=== PATIENT | male | born 1995 ===

== ENCOUNTER → 2020-11-18 | Outpatient (REF) | payer OTHER | LOC: M WUC 19:23 | PROVIDERS: ATTEND Physician Assistant | DX: R31.9 Hematuria, unspecified (principal) ==

== ENCOUNTER → 2021-11-14 | Outpatient (REF) | payer OTHER ==
[2021-11-15 01:35] LABS: GC DNA AMPLIFICATION NEGATIVE (NEGATIVE)
== END ==
LOC: M LAB REF 22:55
PROVIDERS: ATTEND Physician Assistant
DX: Z11.3 Encounter for screening for infections with a predominantly sexual mode of transmission (principal)